=== PATIENT | male | born 1995 | race Caucasian/White ===

== ENCOUNTER 2023-08-14 13:50 | Emergency (ER) | payer BC ==
[2023-08-14] MEDS ORDERED: NA CHLORIDE 0.9% 500 ML ONE (14:17)
--- NOTE | 2023-08-14 15:07 | ER ---
Nurse's Notes [facility] Name: Ehsan Jolly Age: 28 yrs Sex: Male : 1995 Arrival Date: 08/14/2023 Time: 13:50 Bed DX2 Private MD: Diagnosis: Sunburn of first degree Presentation: 08/13 14:01 Chief complaint: Patient states: "I went to the beach Monday and got a sunburn which is as6 normal for me but my legs and feet are so swollen and painful". Coronavirus screen: At this time, the client does not indicate any symptoms associated with coronavirus-19. Ebola Screen: No symptoms or risks identified at this time. Initial Sepsis Screen: Does the patient meet any 2 criteria? No. Patient's initial sepsis screen is negative. Does the patient have a suspected source of infection? No. Patient's initial sepsis screen is negative. Risk Assessment: Do you want to hurt yourself or someone else? Patient reports no desire to harm self or others. Onset of symptoms was August 11, 2023. 14:01 Acuity: CUBA 4 as6 14:01 Method Of Arrival: Ambulatory as6 Triage Assessment: 14:08 General: Appears in no apparent distress. uncomfortable, Behavior is calm, cooperative. as6 Pain: Complains of pain in right leg and left leg. EENT: No deficits noted. No signs and/or symptoms were reported regarding the EENT system. Neuro: Level of Consciousness is awake, alert, obeys commands, Oriented to person, place, time, situation. Cardiovascular: Capillary refill < 3 seconds Patient's skin is warm and dry. Respiratory: Airway is patent Trachea midline Respiratory effort is even, unlabored, Respiratory pattern is regular, symmetrical. GI: No deficits noted. No signs and/or symptoms were reported involving the gastrointestinal system. : No deficits noted. No signs and/or symptoms were reported regarding the genitourinary system. Derm: sunburn noted to legs and feet. Musculoskeletal: Circulation, motion, and sensation intact. Swelling present in right leg and left leg. Historical: - Allergies: 14:04 No Known Allergies; as6 - Home Meds: 14:04 None [Active]; as6 - PMHx: 14:04 None; as6 - PSHx: 14:04 None; as6 - Immunization history:: Adult Immunizations not up to date. - Infectious Disease History:: Denies. - Social history:: Smoking status: Patient reports the use of cigarette tobacco products, Patient uses alcohol. - Family history:: not pertinent. - Hospitalizations: : No recent hospitalization is reported. Screenin:[address] [facility] ED Fall Risk Assessment (Adult) History of falling in the last 3 months, as6 including since admission No falls in past 3 months (0 pts) Confusion or Disorientation No (0 pts) Intoxicated or Sedated No (0 pts) Impaired Gait No (0 pts) Mobility Assist Device Used No (0 pt) Altered Elimination No (0 pt) Score/Fall Risk Level 0 - 2 = Low Risk Oriented to surroundings, Maintained a safe environment, Educated pt \\T\\ family on fall prevention, incl call for assistance when getting out of bed, Assessed \\T\\ reinforced patient's understanding of fall precautions, Hourly rounding (assess needs \\T\\ fall precautionary measures) done. Abuse screen: Denies threats or abuse. Denies injuries from another. Nutritional screening: No deficits noted. Tuberculosis screening: No symptoms or risk factors identified. Assessment: 14:15 General: see triage assessment . as6 14:55 Reassessment: Patient appears in no apparent distress at this time. Patient is alert, as6 oriented x 3, equal unlabored respirations, skin warm/dry/pink. Vital Signs: 14:01 BP 147 / 100; Pulse 73; Resp 17 S; Temp 98.5(TE); Pulse Ox 99% ; Weight 99.79 kg (R); as6 Height 6 ft. 0 in. (R); Pain 7/10; 15:12 BP 124 / 84; Pulse 79; Resp 16 S; Pulse Ox 100% on R/A; as6 14:01 Body Mass Index 29.84 (99.79 kg, 182.88 cm) as6 14:01 Pain Scale: Adult as6 ED Course: 13:52 Patient arrived in ED. mg5 13:57 Jan Bingham MD is Attending Physician. rn 14:04 Triage completed. as6 14:05 Arm band placed on right wrist. as6 14:15 Keegan Krueger, RN is Primary Nurse. as6 14:19 Basic Metabolic Panel Sent. as6 14:19 CK Sent. as6 14:19 BNP Sent. as6 14:19 Inserted saline lock: 20 gauge in right antecubital area, using aseptic technique. as6 Blood collected. 14:50 Bed in low position. Call light in reach. as6 14:50 No provider procedures requiring assistance completed. as6 15:13 Provided Education on: rx teaching. as6 15:13 IV discontinued, intact, bleeding controlled, No redness/swelling at site. Pressure as6 dressing applied. Administered Medications: 14:19 Drug: NS 0.9% IV 500 ml IV at bolus once Route: IV; Rate: bolus; Site: right as6 antecubital; 14:55 Follow up: Response: No adverse reaction; IV Status: Completed infusion; IV Intake: as6 500ml Medication: 14:07 VIS not applicable for this client. as6 Intake: 14:55 IV: 500ml; Total: 500ml. as6 Outcome: 15:06 Discharge ordered by MD. rn 15:13 Discharged to home ambulatory, as6 15:13 Condition: stable 15:13 Discharge instructions given to patient, Instructed on discharge instructions, follow up and referral plans. medication usage, Demonstrated understanding of instructions, follow-up care, medications, Prescriptions given X 2, 15:13 Patient left the ED. as6 Signatures: Jan Bingham MD MD rn Slawson, Ashby, RN RN as6 Nae Moore mg5
--- NOTE | 2023-08-14 15:07 | EDPHYS ---
Physician Documentation [facility] Name: Ehsan Jolly Age: 28 yrs Sex: Male : 1995 Arrival Date: 08/14/2023 Time: 13:50 Bed DX2 Private MD: ED Physician Jan Bingham HPI: 08/13 14:42 This 28 yrs old Male presents to ER via Ambulatory with complaints of sunburn, Feet rn Swelling, Ankle Swelling. 14:42 The patient presents with a burn as a result of. rn 14:43 Patient reports bad sunburn a few days ago, now experiencing blistering and swelling of rn the lower extremities. States was out in the sun for too many hours. No other medical problems. States was not wearing sunscreen. Swelling improves with leg elevation but does not go away completely.. Onset: The symptoms/episode began/occurred 5 day(s) ago. Severity of symptoms: At their worst the symptoms were moderate in the emergency department the symptoms have improved. The patient has not experienced similar symptoms in the past. The patient has not recently seen a physician. Historical: - Allergies: 14:04 No Known Allergies; as6 - Home Meds: 14:04 None [Active]; as6 - PMHx: 14:04 None; as6 - PSHx: 14:04 None; as6 - Immunization history:: Adult Immunizations not up to date. - Infectious Disease History:: Denies. - Social history:: Smoking status: Patient reports the use of cigarette tobacco products, Patient uses alcohol. - Family history:: not pertinent. - Hospitalizations: : No recent hospitalization is reported. ROS: 14:43 Constitutional: Negative for fever, chills, and weight loss, Cardiovascular: Negative rn for chest pain, palpitations Respiratory: Negative for shortness of breath, cough, wheezing, and pleuritic chest pain, Abdomen/GI: Negative for abdominal pain, nausea, vomiting, diarrhea, and constipation, Back: Negative for injury and pain, MS/Extremity: Positive for lower extremity burning and swelling Skin: Positive for sunburn with blisters Neuro: Negative for headache, weakness, numbness, tingling, and seizure, Exam: 14:43 Constitutional: This is a well developed, well nourished patient who is awake, alert, rn and in no acute distress. Cardiovascular: Regular rate and rhythm. No pulse deficits. Skin: Warm, dry, obvious sunburn of bilateral lower extremities, obvious demarcations bilaterally mid thigh an area where shorts with stop as well as no sunburn involving the posterior half of the legs. Small blisters on lower legs. No evidence of infection. MS/ Extremity: Pulses equal, no cyanosis. 1+ edema bilateral lower extremities Neuro: Awake and alert, GCS 15 Vital Signs: 14:01 BP 147 / 100; Pulse 73; Resp 17 S; Temp 98.5(TE); Pulse Ox 99% ; Weight 99.79 kg (R); as6 Height 6 ft. 0 in. (R); Pain 7/10; 15:12 BP 124 / 84; Pulse 79; Resp 16 S; Pulse Ox 100% on R/A; as6 14:01 Body Mass Index 29.84 (99.79 kg, 182.88 cm) as6 14:01 Pain Scale: Adult as6 MDM: 13:57 Patient medically screened. rn 15:05 Differential Diagnosis Sunburn, electrolyte problem, rhabdomyolysis. Data reviewed: rn vital signs, nurses notes, lab test result(s), and as a result, I will discharge patient. Counseling: I had a detailed discussion with the patient and/or guardian regarding the historical points, exam findings, and any diagnostic results supporting the discharge/admit diagnosis, lab results, the need for outpatient follow up, to return to the emergency department if symptoms worsen or persist or if there are any questions or concerns that arise at home. Special discussion: I discussed with the patient/guardian in detail that at this point there is no indication for admission to the hospital. It is understood, however, that if the symptoms persist or worsen the patient needs to return immediately for re-evaluation. 08/13 14:10 Order name: Basic Metabolic Panel; Complete Time: 15:03 08/13 14:10 Order name: CK; Complete Time: 15:08/13 14:10 Order name: BNP; Complete Time: 15:08/13 14:10 Order name: IV Start; Complete Time: 14:19 Administered Medications: 14:19 Drug: NS 0.9% IV 500 ml IV at bolus once Route: IV; Rate: bolus; Site: right as6 antecubital; 14:55 Follow up: Response: No adverse reaction; IV Status: Completed infusion; IV Intake: as6 500ml Disposition Summary: 08/14/23 15:06 Discharge Ordered Notes: Location: Home rn Problem: new rn Symptoms: have improved rn Condition: Stable rn Diagnosis - Sunburn of first degree rn Followup: rn - With: Private Physician - When: As needed - Reason: Recheck today's complaints, Re-evaluation by your physician Discharge Instructions: - Discharge Summary Sheet rn - Sunburn, Adult rn Forms: - Work release form iw - Medication Reconciliation Form rn - Thank You Letter rn - Antibiotic continuous churn buttermaker - Prescription Opioid Use rn - Patient Portal Instructions rn - Leadership Thank You Letter rn Prescriptions: - Cephalexin 500 mg Oral Capsule - take 1 capsule ORAL route every 12 hours for 10 days; 20 capsule; Refills: 0, rn Product Selection Permitted - Tramadol 50 mg Oral Tablet - take 1 tablet ORAL route every 8 hours as needed; 12 tablet; Refills: 0, rn Product Selection Permitted Signatures: Dispatcher [employer] Jan Britton MD MD rn Slawson, Ashby, RN RN as6 Corrections: (The following items were deleted from the chart) 14:10 14:10 BASIC METABOLIC PANEL+C.LAB.BRZ ordered. EDMS EDMS 14:10 14:10 CREATINE PHOSPHOKINASE+C.LAB.BRZ ordered. EDMS EDMS 14:10 14:10 PROBNP+C.LAB.BRZ ordered. EDMS EDMS
[2023-08-14 20:56] VITALS: BP 124/84; TEMP 98.5; O2SAT 100
== END 2023-08-14 15:13 | disposition home or self-care (01) ==
LOC: ER 13:50
DX: L55.0 Sunburn of first degree (principal); Z72.0 Tobacco use
CPT/HCPCS: 80048; 36415; 82550; 83880; 96360; 99284; J7040